=== PATIENT | male | born 1940 | race Asian ===

== ENCOUNTER 2017-07-30 01:48 | Emergency (ER) | payer OTHER ==
[~2017-07-30] VITALS: Ht 175.3 cm; Wt 61.2 kg
[2017-07-30 02:31] LABS: PLATELET COUNT 151 K/uL (142-355)
[2017-07-30 02:36] LABS: POTASSIUM 3.8 mmol/L (3.6-5.2); SODIUM 134 mmol/L (136-145)
[2017-07-30] MEDS ORDERED: VITAMIN B123000 MCG PO (04:26)
[2017-07-30] MEDS ORDERED: ASPIR-8181 MG PO (04:26)
[2017-07-30] MEDS ORDERED: DOCU100C10 PO (04:27)
[2017-07-30] MEDS ORDERED: DONE5TAB PO (04:27)
[2017-07-30] MEDS ORDERED: DIVA125C PO (04:27)
[2017-07-30] MEDS ORDERED: NAMENDA5 MG PO (04:28)
[2017-07-30] MEDS ORDERED: MELATONIN5 MG PO (04:28)
[2017-07-30] MEDS ORDERED: SIMV10TA PO (04:29)
[2017-07-30] MEDS ORDERED: SEROQUEL100 MG PO (04:29)
[2017-07-30 04:31] VITALS: BP 127/73; TEMP 98
[2017-07-30] MEDS ORDERED: TRAZ50TA36 PO (04:31)
== END 2017-07-30 04:33 | disposition other institution (70) ==
LOC: ED 01:48
PROVIDERS: Internal Medicine
DX: R41.82 Altered mental status, unspecified (principal); F03.90 Unspecified dementia, unspecified severity, without behavioral disturbance, psychotic disturbance, mood disturbance, and anxiety; Z04.6 Encounter for general psychiatric examination, requested by authority
CPT/HCPCS: 36415; 80053; 80307; 80320; 80329; 81000; 85027; 93005; 99285

== ENCOUNTER 2017-08-06 13:55 | Inpatient (IN) | payer OTHER ==
[~2017-08-06] VITALS: Ht 170.2 cm; Wt 63.2 kg
[2017-08-06] VITALS (23 sets, daily range): BP systolic 81–174; BP diastolic 52–101; TEMP 93–98.6; Ht 170.2 cm; Wt 63.2 kg
[~2017-08-06 13:55] MED LIST: ASPIR-8181 MG PO; DIVA125C PO; DOCU100C10 PO; DONE5TAB PO; MELATONIN5 MG PO; NAMENDA5 MG PO; SEROQUEL100 MG PO; SIMV10TA PO; TRAZ50TA36 PO; VITAMIN B123000 MCG PO
[2017-08-06 16:08] LABS: PLATELET COUNT 212 K/uL (142-355)
[2017-08-06 16:51] LABS: POTASSIUM 4.2 mmol/L (3.6-5.2)
[2017-08-06] MEDS ORDERED: PANTOPRAZOLE 40MG TA PO (19:28)
[2017-08-06] MEDS ORDERED: METAMUCIL0.52 GM (19:29)
[2017-08-06] MEDS ORDERED: DIVA125C (19:30)
[2017-08-06] MEDS ORDERED: CIPRO500 MG PO (19:31)
[2017-08-06] MEDS ORDERED: 904272561 PO (19:32)
[2017-08-06] MEDS ORDERED: FLUC150T PO (19:33)
[2017-08-06] MEDS ORDERED: MUPI2OIN2 TOP (19:34)
[2017-08-06] MEDS ORDERED: LEXAPRO10 MG PO (19:35)
[2017-08-06] MEDS ORDERED: OLAN2.5T2 PO (19:36)
[2017-08-06] MEDS ORDERED: ALUMSUS6 PO (19:37)
[2017-08-06] MEDS ORDERED: TYLENOL325 MG OR (19:38)
[2017-08-06] MEDS ORDERED: MILK OF MAGNESI1 SU1 PO (19:40)
[2017-08-06] MEDS ORDERED: TYLENOL325 M1 PO (19:42)
[2017-08-06] MEDS ORDERED: LORA1TAB17 PO (19:43)
[2017-08-06] MEDS ORDERED: HALO5INJ3 IM (19:44)
[2017-08-06] MEDS ORDERED: [UNRECOGNIZED DRUG - OTHER] TOP (19:49)
[2017-08-07] VITALS (23 sets, daily range): BP systolic 88–165; BP diastolic 53–102; TEMP 96.9–98.6
[2017-08-07 06:22] LABS: PLATELET COUNT 209 K/uL (142-355)
[2017-08-07 06:42] LABS: POTASSIUM 4.5 mmol/L (3.6-5.2)
[2017-08-08] VITALS (40 sets, daily range): BP systolic 11–164; BP diastolic 58–91; TEMP 97.3–98.5
[2017-08-08 06:43] LABS: PLATELET COUNT 214 K/uL (142-355)
[2017-08-09] VITALS (13 sets, daily range): BP systolic 90–130; BP diastolic 61–76; TEMP 97.2–98.5
[2017-08-09 05:38] LABS: PLATELET COUNT 221 K/uL (142-355)
[2017-08-09 05:56] LABS: POTASSIUM 3.9 mmol/L (3.6-5.2)
== END 2017-08-09 07:50 | disposition other institution (70) | DRG 917 ==
LOC: ICU 13:55
PROVIDERS: ADMIT Family Medicine
DX: T43.4X1A Poisoning by butyrophenone and thiothixene neuroleptics, accidental (unintentional), initial encounter (principal); G92 Toxic encephalopathy; F02.81 Dementia in other diseases classified elsewhere, unspecified severity, with behavioral disturbance; E46 Unspecified protein-calorie malnutrition; T42.4X1A Poisoning by benzodiazepines, accidental (unintentional), initial encounter; Y92.89 Other specified places as the place of occurrence of the external cause; I10 Essential (primary) hypertension; E78.4 Other hyperlipidemia; G30.8 Other Alzheimer's disease; R26.89 Other abnormalities of gait and mobility; R00.1 Bradycardia, unspecified; S80.212A Abrasion, left knee, initial encounter; S80.211A Abrasion, right knee, initial encounter; R13.12 Dysphagia, oropharyngeal phase; R68.0 Hypothermia, not associated with low environmental temperature
CPT/HCPCS: 36415; 36600; 80053; 82550; 82553; 82805; 83615; 84484; 85027; 94760; J2060; J2310; J3490